=== PATIENT | female | born 1980 | race African-American/Black ===

== ENCOUNTER 2017-09-15 15:19 | Emergency (ER) | payer OTHER ==
[2017-09-15 15:26] VITALS: BP 132/88; PULSE 75; TEMP 97.9; BMI 34.6
--- NOTE | 2017-09-15 15:40 | PDOC ---
History of Present Illness - General Chief Complaint: Vaginal Sxs Stated Complaint: VAGINAL DISCHARGE Time Seen by Provider: 09/15/17 15:22 - History of Present Illness Initial Comments: 09/15/17 15:42 "Patient is a 37 F, with no significant PMHx, who presents to the ER for 3 days of vaginal discharge. Patient describes the discharge as mucus-colored with foul order. She does not report any pain but states it just feels uncomfortable down there. She states that she is sexually active. She states the last time she had intercourse was 2 weeks ago. She states that she uses protection most of the time but not always. Pt reports that she had a similar episode a year ago and received "a shot and a pill" for treatment for STD. Pt requesting same today, as well as HIV test. Patient denies vaginal bleeding, dysuria. PCP: Ron Velez " Past History - Past Medical History Allergies/Adverse Reactions: Allergies Allergy/AdvReac Type Severity Reaction Status Date / Time No Known Allergies Allergy Verified 09/15/17 15:21 Home Medications: Ambulatory Orders metroNIDAZOLE [Flagyl -] 500 mg PO BID #14 tablet 09/15/17 COPD: No - Suicide/Smoking/Psychosocial Hx Smoking History: Never smoked Hx Alcohol Use: No Drug/Substance Use Hx: No Substance Use Type: None Review of Systems - Review of Systems Comments:: 09/15/17 15:43 "GENERAL/CONSTITUTIONAL: No fever or chills. No weakness. HEAD, EYES, EARS, NOSE AND THROAT: No change in vision. No ear pain or discharge. No sore throat. CARDIOVASCULAR: No chest pain or shortness of breath. RESPIRATORY: No cough, wheezing, or hemoptysis. GASTROINTESTINAL: No nausea, vomiting, diarrhea or constipation. GENITOURINARY: No dysuria, frequency, or change in urination. GYNECOLOGICAL: + Malodorous yellow-colored discharge MUSCULOSKELETAL: No joint or muscle swelling or pain. No neck or back pain. SKIN: No rash NEUROLOGIC: No headache, vertigo, loss of consciousness, or change in strength/ sensation. ENDOCRINE: No increased thirst. No abnormal weight change. HEMATOLOGIC/LYMPHATIC: No anemia, easy bleeding, or history of blood clots. ALLERGIC/IMMUNOLOGIC: No hives or skin allergy. *Physical Exam - Vital Signs Last Vital Signs Temp Pulse Resp BP Pulse Ox 97.9 F 75 16 132/88 99 09/15/17 15:21 09/15/17 15:21 09/15/17 15:21 09/15/17 15:21 09/15/17 15:21 - Physical Exam Comments: 09/15/17 15:36 "GENERAL: Awake, alert, and fully oriented, in no acute distress. HEAD: No signs of trauma EYES: PERRLA, EOMI, sclera anicteric, conjunctiva clear ENT: Auricles normal inspection, hearing grossly normal, nares patent, oropharynx clear without exudates. Moist mucosa NECK: Nontender, no stepoffs, Normal ROM, supple, no lymphadenopathy, JVD, or masses LUNGS: Breath sounds equal, clear to auscultation bilaterally. No wheezes, and no crackles HEART: Regular rate and rhythm, normal S1 and S2, no murmurs, rubs or gallops ABDOMEN: Soft, nontender, normoactive bowel sounds. No guarding, no rebound. No masses EXTREMITIES: Normal range of motion, no edema. No clubbing or cyanosis. No cords, erythema, or tenderness NEUROLOGICAL: Cranial nerves II through XII intact. 5/5 strength and sensation in all extremities, Normal speech, normal gait, normal cerebellar function SKIN: Warm, Dry, normal turgor, no rashes or lesions noted. : + clear yellowish discharge with fishy odor, no CMT, no white discharge, no lesions on labia or in vaginal canal Medical Decision Making - Medical Decision Making 09/15/17 15:39 37 F with foul smelling vaginal discharge. Likely BV. No CMT to suggest PID. However, pt requesting tx for GC/CT as well, in addition to HIV test. - Flagyl 500mg BID - Ceftriaxone 250mg IM, azithro 1gm - HIV test 09/15/17 16:08 Pt does not wish to wait for HIV test result. Will DC at this time. Pt is well appearing, with normal vitals. Clinically stable for DC at this time. I discussed the physical exam findings, ancillary test results and final diagnoses with the patient. I answered all of the patient's questions. The patient was satisfied with the care received and felt comfortable with the discharge plan and treatment plan. The patient agrees to follow up with the primary care physician within 24-72 hours. *DC/Admit/Observation/Transfer Diagnosis at time of Disposition: Bacterial vaginosis - Discharge Dispostion Disposition: HOME Condition at time of disposition: Good - Prescriptions Prescriptions: metroNIDAZOLE [Flagyl -] 500 mg PO BID #14 tablet - Referrals Referrals: Ron Velez MD [Primary Care Provider] - - Patient Instructions Printed Discharge Instructions: DI for Bacterial Vaginosis Additional Instructions: Take the antibiotics as prescribed to treat your infection. If you experience pain, fevers, worsening discharge, or any other concerning symptoms, return to the ER immediately. We will call you with your HIV test results. If you do not hear back from us, call [phone] for your results. - Post Discharge Activity - Attestations Physician Attestion: 09/15/17 16:12 I, Dr. Ed Carbone MD, attest that this document has been prepared under my direction and personally reviewed by me in its entirety. I further attest, that it accurately reflects all work, treatment, procedures and medical decision -making performed by me.
[2017-09-15] MEDS ORDERED: AZITHROMYCIN 1 GM PACKET PO ONE (15:41)
[2017-09-15] MEDS ORDERED: AZITHROMYCIN 1 GM PACKET ONE (15:44)
== END 2017-09-15 16:38 | disposition home or self-care (01) ==
LOC: FER 15:19
DX: N76.0 Acute vaginitis (principal)
CPT/HCPCS: 36415; 87389; 96372; 99282-25

== ENCOUNTER 2018-02-17 08:28 | Emergency (ER) | payer OTHER ==
[2018-02-17 08:44] VITALS: BP 125/86; PULSE 73; TEMP 98.3; BMI 36.2
[2018-02-17] MEDS ORDERED: KETOROLAC TROMETHAMINE 30 MG/1 ML VIAL ONE (08:44)
[2018-02-17] MEDS ORDERED: KETOROLAC TROMETHAMINE 30 MG/1 ML VIAL IM ONE (08:44)
[2018-02-17] MEDS ORDERED: PENICILLIN V POTASSIUM 500 MG TABLET PO ONE (08:45)
--- NOTE | 2018-02-17 08:51 | PDOC ---
History of Present Illness - General Chief Complaint: Pain Stated Complaint: LEFT EAR AND TOOTH PAIN Time Seen by Provider: 02/17/18 08:39 History Source: Patient, Unavil. due to pt. cond. - History of Present Illness Initial Comments: 02/17/18 08:46 37-year-old female no past medical history here today complaining of left lower dental pain. Patient states pain is referred to her left ear denies any fevers or chills did feel a throbbing sensation near that tooth. States she chipped her lower molar 2 days ago has had some cold and hot sensitivity since then went to [facility] to be seen and was referred to [facility] however patient did not want to go to the hospital she presents here. States her dentist is out of the country for 3 weeks. Denies fevers or chills no other current complaints Past History - Past Medical History Allergies/Adverse Reactions: Allergies Allergy/AdvReac Type Severity Reaction Status Date / Time No Known Allergies Allergy Verified 02/17/18 08:29 Home Medications: Ambulatory Orders Ibuprofen [Motrin -] 400 mg PO PRN 02/17/18 Ibuprofen [Motrin -] 600 mg PO TID PRN #90 tablet MDD 3 02/17/18 Penicillin V Potassium [Pen Vee K -] 500 mg PO TID #21 tablet 02/17/18 COPD: No - Suicide/Smoking/Psychosocial Hx Smoking History: Never smoked Have you smoked in the past 12 months: No Information on smoking cessation initiated: No Hx Alcohol Use: No Drug/Substance Use Hx: No Substance Use Type: None Review of Systems - Review of Systems Constitutional: No: Chills, Diaphoresis HEENTM: Yes: Dental Problems. No: Eye Pain Respiratory: No: Cough, Orthopnea Cardiac (ROS): No: Chest Pain : No: Burning, Dysuria Musculoskeletal: No: Back Pain, Gout All Other Systems: Reviewed and Negative *Physical Exam - Vital Signs Last Vital Signs Temp Pulse Resp BP Pulse Ox 98.3 F 73 16 125/86 99 02/17/18 08:29 02/17/18 08:29 02/17/18 08:29 02/17/18 08:29 02/17/18 08:29 - Physical Exam Comments: 02/17/18 08:49 Awake alert notes distress. TMs are clear bilaterally. Throat pharynx is clear no urinary erythema no exudates uvula is midline. Dental exam reviews a left lower molar with an avulsion there is no palpable gum fluctuance or palpable abscess. No appreciated buccal or facial swelling. No trismus cardiac exam is regular without murmurs rubs or gallops lungs are clear bilaterally. Skin is warm and dry Medical Decision Making - Medical Decision Making 02/17/18 08:51 Patient with dental avulsion and increasing pain. We'll prescribe Motrin 600 mg we'll also give prescription for penicillin. Patient was given information for a local dental urgent care told to follow up with her dentist or dentist colleague return for any swelling fever or any other concerns *DC/Admit/Observation/Transfer Diagnosis at time of Disposition: Pain, dental - Discharge Dispostion Disposition: HOME Condition at time of disposition: Stable Decision to Admit order: No - Prescriptions Prescriptions: Ibuprofen [Motrin -] 600 mg PO TID PRN #90 tablet MDD 3 PRN Reason: Pain Penicillin V Potassium [Pen Vee K -] 500 mg PO TID #21 tablet - Referrals - Patient Instructions Printed Discharge Instructions: DI for Dental Pain Additional Instructions: He should take penicillin 500 mg 3 times daily for 1 week. For your pain he can take ibuprofen 600 mg every 8 hours as needed. Due take with food. you were given a penicillin 500mg here today and toradol intramuscular injection for your pain. you should follow-up with a dental urgent care or your primary dentist for definitive treatment. The dental urgent care is located at [address] [place] [address]. Phone number is [phone] they are open today at 9 AM. - Post Discharge Activity
== END 2018-02-17 09:06 | disposition home or self-care (01) ==
LOC: FER 08:28
PROC: 3E0233Z Introduction of Anti-inflammatory into Muscle, Percutaneous Approach (ICD-10-PCS; principal; 2018-02-17)
DX: K08.89 Other specified disorders of teeth and supporting structures (principal)
CPT/HCPCS: 99282-25

== ENCOUNTER 2018-10-12 15:54 | Emergency (ER) | payer OTHER ==
[2018-10-12 16:33] VITALS: BP 122/76; PULSE 84; TEMP 99.1; BMI 37.9
[2018-10-12] MEDS ORDERED: KETOROLAC TROMETHAMINE 15 MG/ML VIAL IM ONE (16:37)
[2018-10-12] MEDS ORDERED: DEXAMETHASONE SOD PHOSPHATE 4 MG/1 ML VIAL IM ONE (16:37)
[2018-10-12] MEDS ORDERED: KETOROLAC TROMETHAMINE 15 MG/ML VIAL ONE (16:50)
[2018-10-12] MEDS ORDERED: DEXAMETHASONE SOD PHOSPHATE 4 MG/1 ML VIAL ONE (16:50)
--- NOTE | 2018-10-12 17:20 | PDOC ---
Documentation entered by Cecelia Vilchis SCRIBE, acting as scribe for Filipe Negrete MD. Filipe Negrete MD: This documentation has been prepared by the Mame maza Brenda, SCRIBE, under my direction and personally reviewed by me in its entirety. I confirm that the documentation accurately reflects all work, treatment, procedures, and medical decision making performed by me. History of Present Illness - General Chief Complaint: Sore Throat Stated Complaint: SORE THROAT History Source: Patient Exam Limitations: No Limitations - History of Present Illness Initial Comments: 10/12/18 17:02 The patient is a 38 year old female with no significant past medical history of who presents to the emergency department with 1 day of sore throat and a subjective fever. Patient notes sore throat to be scratchy and burning, and with mild radiation to the right ear. The patients also notes nasal congestion and a cough. The patient denies recent travel. Denies chest pain, headache and dizziness. Denies nausea, vomiting, diarrhea and constipation. Allergies: NKA Social history: No tobacco use, no alcohol use. PCP: Dr. Velez Past History - Past Medical History Allergies/Adverse Reactions: Allergies Allergy/AdvReac Type Severity Reaction Status Date / Time No Known Allergies Allergy Verified 10/12/18 16:26 Home Medications: Ambulatory Orders Albuterol Sulfate Inhaler - [Ventolin Hfa Inhaler -] 1 - 2 inh PO Q4H #1 inhaler 10/12/18 Albuterol Sulfate Inhaler - [Ventolin Hfa Inhaler -] 2 inh PO Q6H PRN 10/12/18 COPD: No - Suicide/Smoking/Psychosocial Hx Smoking History: Never smoked Have you smoked in the past 12 months: No Hx Alcohol Use: No Drug/Substance Use Hx: No Substance Use Type: None Review of Systems - Review of Systems Able to Perform ROS?: Yes Comments:: 10/12/18 16:50 A complete review of 10 out of 10 review of systems is taken and is negative apart from what is previously mentioned below and in the HPI. *Physical Exam - Vital Signs Last Vital Signs Temp Pulse Resp BP Pulse Ox 99.1 F 84 16 122/76 99 10/12/18 15:55 10/12/18 15:55 10/12/18 15:55 10/12/18 15:55 10/12/18 15:55 - Physical Exam Comments: 10/12/18 16:50 Vitals: Triage vital signs reviewed General Appearance: No acute distress, well nourished, well developed Head: Atraumatic Eyes: Pupils equal reactive round, extraocular movement intact Nose: Nares patent bilaterally Throat: + Enlarged tonsils + Erythematous throat. Mucous membranes moist Neck: + Lymphadenopathy. Supple; No nuchal rigidity Chest Wall: Nontender Cardiac: Regular rate and rhythm, no murmurs, no rubs, no gallops Lungs: Clear to auscultation bilateral, good air movement bilaterally Skin: Warm and dry, no rashes or lesions,, no petechiae Neuro: AOX3; Cranial Nerves 2-12 grossly intact, Strength intact to all extremities, Sensation intact to all extremities, gait normal Psych: Normal mood, normal affect ED Treatment Course - Medications Given in the ED: ED Medications Discontinued Medications Generic Name Dose Route Start Last Admin Trade Name Freq PRN Reason Stop Dose Admin Dexamethasone Sodium Phosphate 4 mg 10/12/18 16:37 10/12/18 16:55 Decadron Injection - IM 10/12/18 16:38 4 mg ONCE ONE Administration Ketorolac Tromethamine 15 mg 10/12/18 16:37 10/12/18 16:55 Toradol Injection - IM 10/12/18 16:38 15 mg ONCE ONE Administration Medical Decision Making - Medical Decision Making 10/12/18 17:19 History examination consistent viral pharyngitis given runny nose cough Patient treated with Decadron and Toradol with some improvement in symptomatology Rapid strep negative. Supportive measures. Find his, need for follow-up and strict return instructions discussed with patient. *DC/Admit/Observation/Transfer Diagnosis at time of Disposition: Pharyngitis Qualifiers: Pharyngitis/tonsillitis etiology: unspecified etiology Qualified Code(s): J02.9 - Acute pharyngitis, unspecified - Discharge Dispostion Disposition: HOME Condition at time of disposition: Good Decision to Admit order: No - Prescriptions Prescriptions: Albuterol Sulfate Inhaler - [Ventolin Hfa Inhaler -] 1 - 2 inh PO Q4H #1 inhaler - Referrals Referrals: Ron Velez MD [Primary Care Provider] - - Patient Instructions Printed Discharge Instructions: Viral Pharyngitis Additional Instructions: Alternate [id number] Tylenol Motrin as directed on package every 3 hours as needed for pain. Follow-up with her doctor next week. Return to ED for any severe worsening symptoms or for any concerns. - Post Discharge Activity Forms/Work/School Notes: Back to Work
== END 2018-10-12 17:41 | disposition home or self-care (01) ==
LOC: FER 15:54
PROC: 3E023GC Introduction of Other Therapeutic Substance into Muscle, Percutaneous Approach (ICD-10-PCS; principal; 2018-10-12)
PROC: 3E0233Z Introduction of Anti-inflammatory into Muscle, Percutaneous Approach (ICD-10-PCS; 2018-10-12)
DX: J02.9 Acute pharyngitis, unspecified (principal)
CPT/HCPCS: 87070; 87880; 96372; 99282-25

== ENCOUNTER 2019-06-25 13:14 | Emergency (ER) | payer OTHER ==
[2019-06-25 13:23] VITALS: BMI 35.7
[2019-06-25] MEDS ORDERED: METOCLOPRAMIDE HCL INJECTION 10 MG/2 ML VIAL IVPB ONE (13:38)
[2019-06-25] MEDS ORDERED: SODIUM CHLORIDE 0.9% 1000 ML INFUS.BAG IV ONE (13:38)
[2019-06-25] MEDS ORDERED: METOCLOPRAMIDE HCL INJECTION 10 MG/2 ML VIAL ONE (13:58)
--- NOTE | 2019-06-25 15:04 | PDOC ---
History of Present Illness - General Chief Complaint: Headache Stated Complaint: HEADACHE FOR 2 DAYS TOOK EXCEDRIN MIGRAINE INTERM Time Seen by Provider: 06/25/19 13:28 - History of Present Illness Initial Comments: 06/25/19 15:00 39 years old past medical history significant for headaches approximately 1-2 a month usually resolve with Excedrin presents to the ED with 2-day history of gradual onset headache yesterday starting at the top of her head sharp intermittent gradually worsening no associated fever photophobia or neck stiffness no URI symptoms no rash Symptoms are mild to moderate persistent constant gradually worsening Past History - Past Medical History Allergies/Adverse Reactions: Allergies Allergy/AdvReac Type Severity Reaction Status Date / Time No Known Allergies Allergy Verified 10/12/18 16:26 Home Medications: Ambulatory Orders NK [No Known Home Medication] 06/25/19 Asthma: Yes COPD: No Other medical history: DENIES - Psycho Social/Smoking Cessation Hx Smoking History: Never smoked Have you smoked in the past 12 months: No Information on smoking cessation initiated: No Hx Alcohol Use: No Drug/Substance Use Hx: No Substance Use Type: None Review of Systems - Review of Systems Comments:: 06/25/19 15:00 ROS: A complete review of 10 out of 10 review of systems is taken and is negative apart from what is previously mentioned below and in the HPI. *Physical Exam - Vital Signs Last Vital Signs Temp Pulse Resp BP Pulse Ox 98 F 72 16 127/84 100 06/25/19 13:15 06/25/19 13:15 06/25/19 13:15 06/25/19 13:15 06/25/19 13:15 - Physical Exam 06/25/19 15:01 Vitals: Triage Vital signs reviewed General Appearance: No acute distress, well nourished well developed, Head: Atraumatic, Eyes: Pupils equal reactive round, extraocular movement intact Neck: Supple; no Nucal rigidity Chest Wall: Nontender Cardiac: Regular rate and rhythym, no murmurs, no rubs, no gallops, Lungs: Clear to auscultation bilateral, good air movement bilaterally, Abdomen: Soft, non distended, normal bowel sounds, non tender to palpation Extremities: Full range of motion to all extremities, no cyanosis, clubbing, or edema Skin: Warm and dry, no rashes or lesions, no rash, no petechiae Neuro: AOX3; cranial Nerves 2-12 grossly intact, strength intact to all extremities, sensation intact to all extremities, gait normal Psych: Normal mood, normal affect ED Treatment Course - RADIOLOGY Radiology Studies Ordered: Category Date Time Status HEAD CT WITHOUT CONTRAST [CT] Stat CT Scan 06/25/19 13:38 Completed - Medications Given in the ED: ED Medications Discontinued Medications Generic Name Dose Route Start Last Admin Trade Name Ruddy PRN Reason Stop Dose Admin Diphenhydramine HCl 25 mg 06/25/19 13:38 06/25/19 14:00 Benadryl Injection - IVPB 06/25/19 13:39 25 mg ONCE ONE Administration Metoclopramide HCl 10 mg 06/25/19 13:38 06/25/19 14:11 Reglan Injection - IVPB 06/25/19 13:39 10 mg ONCE ONE Administration Sodium Chloride 1,000 ml 06/25/19 13:38 06/25/19 13:56 Normal Saline - IV 06/25/19 13:39 1,000 ml ONCE ONE Administration Medical Decision Making - Medical Decision Making 06/25/19 15:01 39 years old with no significant past medical headache with headache lasting 2 days typical headache is 1 day no prior imaging Well-appearing no apparent distress will CT head migraine meds observe and reassess Reevaluation no acute pathology noted on head CT patient feels better after fluids and meds will give 1 day off from work she will follow-up with neurology she will return to ED for any severe worsening symptoms or for any concerns Findings, the need for follow-up and strict return instructions discussed with patient. Discharge - Discharge Information Problems reviewed: Yes Clinical Impression/Diagnosis: Headache Qualifiers: Headache type: unspecified Headache chronicity pattern: acute headache Intractability: not intractable Qualified Code(s): R51 - Headache Condition: Stable - Admission No - Follow up/Referral Referrals: Matt Lopez MD [Staff Physician] - - Patient Discharge Instructions Patient Printed Discharge Instructions: Tension Headache Additional Instructions: Drink plenty of fluids. Take [id number] Motrin for the next 2 days as directed on package. Rest. If headache persists follow-up with Dr. Saleem off neurology. Return to the emergency department immediately for any severe worsening symptoms or for any concerns. - Post Discharge Activity Work/Back to School Note: Back to Work
[2019-06-25 15:20] VITALS: BP 123/83; PULSE 58; TEMP 98.5
== END 2019-06-25 15:22 | disposition home or self-care (01) ==
LOC: FER 13:14
PROC: 3E033GC Introduction of Other Therapeutic Substance into Peripheral Vein, Percutaneous Approach (ICD-10-PCS; principal; 2019-06-25)
DX: R51 Headache (principal)
CPT/HCPCS: 70450-TC; 99285-25; J7030

== ENCOUNTER 2020-07-31 13:10 | Emergency (ER) | payer OTHER ==
[2020-07-31 13:26] VITALS: BP 142/100; PULSE 90; TEMP 98.9; BMI 37.9
== END 2020-07-31 14:38 | disposition home or self-care (01) ==
LOC: FER 13:10
DX: H92.01 Otalgia, right ear (principal)
CPT/HCPCS: 99282-25

== ENCOUNTER 2020-10-15 13:46 | Emergency (ER) | payer OTHER ==
[2020-10-15 14:01] VITALS: BP 132/89; PULSE 80; TEMP 98.2; BMI 28.1
== END 2020-10-15 14:50 | disposition home or self-care (01) ==
LOC: FER 13:46
DX: R50.9 Fever, unspecified (principal); R68.83 Chills (without fever); J02.9 Acute pharyngitis, unspecified
CPT/HCPCS: 99283-25

== ENCOUNTER 2020-10-19 13:15 | Emergency (ER) | payer OTHER ==
[2020-10-19] MEDS ORDERED: ALBUTEROL SO4 2.5/IPRATROPIUM 0.5 INH SOL 3 ML VIAL.NEB. NEB ONE ×2 (13:17→13:22)
[2020-10-19 13:19] VITALS: BP 118/78; PULSE 78; TEMP 97.8; BMI 31.6
[2020-10-19] MEDS ORDERED: FLUCONAZOLE 50 MG TABLET PO ONE (13:30)
[2020-10-19] MEDS ORDERED: FLUCONAZOLE 150 MG TABLET PO ONE (13:36)
== END 2020-10-19 14:00 | disposition home or self-care (01) ==
LOC: FER 13:15
PROC: 3E0F7GC Introduction of Other Therapeutic Substance into Respiratory Tract, Via Natural or Artificial Opening (ICD-10-PCS; principal; 2020-10-19)
DX: R06.02 Shortness of breath (principal); B37.9 Candidiasis, unspecified
CPT/HCPCS: 99283-25

== ENCOUNTER 2021-06-30 17:05 | Emergency (ER) | payer OTHER ==
[2021-06-30 17:19] VITALS: BP 136/83; PULSE 61; TEMP 98.3; BMI 36.2
[2021-06-30] MEDS ORDERED: ALBUTEROL SO4 2.5/IPRATROPIUM 0.5 INH SOL 3 ML VIAL.NEB. NEB ONE ×2 (17:33→17:42)
[2021-06-30] MEDS ORDERED: KETOROLAC TROMETHAMINE 30 MG/1 ML VIAL IM ONE (17:33)
[2021-06-30] MEDS ORDERED: ACETAMINOPHEN 325 MG TABLET (FP) PO ONE (17:34)
[2021-06-30] MEDS ORDERED: ACETAMINOPHEN 325 MG TABLET (FP) ONE (17:42)
[2021-06-30] MEDS ORDERED: KETOROLAC TROMETHAMINE 30 MG/1 ML VIAL ONE (17:42)
== END 2021-06-30 18:32 | disposition home or self-care (01) ==
LOC: FER 17:05
PROC: 3E023GC Introduction of Other Therapeutic Substance into Muscle, Percutaneous Approach (ICD-10-PCS; principal; 2021-06-30)
PROC: 3E0F7GC Introduction of Other Therapeutic Substance into Respiratory Tract, Via Natural or Artificial Opening (ICD-10-PCS; 2021-06-30)
DX: R51.9 Headache, unspecified (principal)
CPT/HCPCS: 84703; 94640; 96372; 99284-25

== ENCOUNTER 2021-10-11 16:58 | Emergency (ER) | payer OTHER ==
[2021-10-11 17:13] VITALS: BP 130/79; PULSE 76; TEMP 98.2; BMI 34.6
[2021-10-11] MEDS ORDERED: DIPHTH,PERTUSS(ACELL),TET 0.5 ML DISP.SYRIN IM ONE ×2 (17:26→17:31)
[2021-10-11] MEDS ORDERED: AZITHROMYCIN 500 MG TABLET PO ONE (18:32)
[2021-10-11] MEDS ORDERED: AZITHROMYCIN 250 MG TABLET ONE (18:45)
== END 2021-10-11 18:55 | disposition home or self-care (01) ==
LOC: FER 16:58
PROC: 3E0234Z Introduction of Serum, Toxoid and Vaccine into Muscle, Percutaneous Approach (ICD-10-PCS; principal; 2021-10-11)
PROC: 3E023GC Introduction of Other Therapeutic Substance into Muscle, Percutaneous Approach (ICD-10-PCS; principal; 2021-10-11)
DX: S89.92XA Unspecified injury of left lower leg, initial encounter (principal); W22.8XXA Striking against or struck by other objects, initial encounter
CPT/HCPCS: 73590-TC-LT-FY; 81003; 87086; 90471; 90715; 96372; 99284-25

== ENCOUNTER 2021-10-23 23:55 | Emergency (ER) | payer OTHER ==
[2021-10-24 00:01] VITALS: BMI 34.6
[2021-10-24 00:08] VITALS: BP 121/74; PULSE 70; TEMP 98.5
[2021-10-24] MEDS ORDERED: AZITHROMYCIN 500 MG TABLET PO ONE (01:10)
[2021-10-24] MEDS ORDERED: AZITHROMYCIN 250 MG TABLET ONE (01:18)
[2021-10-24 03:11] LABS: EPI CELLS 6 /uL (0-25.1); HYALINE CASTS 1 /uL (0-3.1); URINE APPEARANCE CLEAR; URINE BILIRUBIN 1+ (NEGATIVE); URINE COLOR ORANGE; URINE GLUCOSE (UA) NEGATIVE (NEGATIVE); URINE KETONE NEGATIVE (NEGATIVE); URINE LEUK ESTERASE 1+ (NEGATIVE); URINE NITRITE POSITIVE (NEGATIVE); URINE PROTEIN TRACE (NEGATIVE); URINE RBC 10 /uL (0-23.9); URINE WBC 15 /uL (0-25.8)
[2021-10-24 04:15] LABS: URINE BACTERIA 4.7 /uL (0-1359); URINE CRYSTALS NONE SEEN /hpf
[2021-10-24 06:05] LABS: HCG,QUALITATIVE URINE NEGATIVE
== END 2021-10-24 01:21 | disposition home or self-care (01) ==
LOC: FER 23:55
DX: N34.2 Other urethritis (principal)
CPT/HCPCS: 81003; 84703; 87086; 99283-25

== ENCOUNTER 2021-12-03 22:16 | Emergency (ER) | payer OTHER ==
[2021-12-03 22:25] VITALS: BP 124/71; PULSE 81; RESP 14; TEMP 98.8; BMI 34.6
[2021-12-03] MEDS ORDERED: ACETAMINOPHEN 500 MG TABLET (FP) PO ONE (23:06)
[2021-12-03] MEDS ORDERED: SODIUM PHOSPHATE/NA BIPHOS 133 ML ENEMA PR ONE ×2 (23:07→23:34)
[2021-12-03] MEDS ORDERED: ACETAMINOPHEN 325 MG TABLET (FP) ONE (23:14)
[2021-12-03] MEDS ORDERED: POLYETHYLENE GLYCOL (HEALTHYLAX) 3350 17 GM PACKET PO SCH (23:15)
== END 2021-12-04 00:17 | disposition home or self-care (01) ==
LOC: FER 22:16
DX: K59.00 Constipation, unspecified (principal)
CPT/HCPCS: 99283-25

== ENCOUNTER 2022-03-07 18:20 | Emergency (ER) | payer OTHER ==
[2022-03-07 18:25] VITALS: BP 121/77; PULSE 91; RESP 18; TEMP 98; BMI 34.6
[2022-03-07] MEDS ORDERED: NEOMYCIN/POLYMYXN/HC OTIC SUSPENSION 10 ML BOTTLE AD STA (19:19)
[2022-03-07] MEDS ORDERED: NEOMYCIN/POLYMYXN/HC OTIC SUSPENSION 10 ML BOTTLE ONE (19:22)
== END 2022-03-07 19:50 | disposition home or self-care (01) ==
LOC: FER 18:20
DX: H60.501 Unspecified acute noninfective otitis externa, right ear (principal)
CPT/HCPCS: 99283-25

== ENCOUNTER 2022-03-25 05:43 | Emergency (ER) | payer OTHER ==
[2022-03-25 06:08] VITALS: BP 111/71; PULSE 64; RESP 16; TEMP 98.3; BMI 34.6
== END 2022-03-25 06:30 | disposition home or self-care (01) ==
LOC: FER 05:43
DX: H60.501 Unspecified acute noninfective otitis externa, right ear (principal)
CPT/HCPCS: 99283-25

== ENCOUNTER 2022-09-08 15:39 | Emergency (ER) | payer OTHER ==
[2022-09-08 15:46] VITALS: BP 116/77; PULSE 87; RESP 16; TEMP 99.2; BMI 34.6
[2022-09-08] MEDS ORDERED: KETOROLAC TROMETHAMINE 15 MG/ML VIAL IM ONE (16:53)
[2022-09-08] MEDS ORDERED: ACETAMINOPHEN 500 MG TABLET (FP) PO ONE (16:53)
[2022-09-08] MEDS ORDERED: ACETAMINOPHEN 325 MG TABLET (FP) ONE (16:58)
[2022-09-08] MEDS ORDERED: KETOROLAC TROMETHAMINE 15 MG/ML VIAL ONE (16:59)
[2022-09-08 19:46] LABS: THROAT:GRP A STREP NOT DETECTED (NOTDETECTED)
== END 2022-09-08 19:56 | disposition home or self-care (01) ==
LOC: FER 15:39
PROC: 3E023GC Introduction of Other Therapeutic Substance into Muscle, Percutaneous Approach (ICD-10-PCS; principal; 2022-09-08)
DX: J02.9 Acute pharyngitis, unspecified (principal); M79.10 Myalgia, unspecified site; R68.83 Chills (without fever); R51.9 Headache, unspecified; Z20.822 Contact with and (suspected) exposure to COVID-19
CPT/HCPCS: 0241U-QW; 87651; 99284-25

== ENCOUNTER 2023-01-12 19:47 | Emergency (ER) | payer OTHER ==
[2023-01-12 20:29] VITALS: BP 126/90; PULSE 65; RESP 18; TEMP 98.6; BMI 34.8
[2023-01-12] MEDS ORDERED: KETOROLAC TROMETHAMINE 60 MG/2 ML VIAL IM ONE (20:42)
[2023-01-12] MEDS ORDERED: KETOROLAC TROMETHAMINE 60 MG/2 ML VIAL ONE (20:44)
[2023-01-12] MEDS ORDERED: ALBUTEROL SO4 0.083% IH SOL 2.5 MG/3 ML VIAL.NEB. NEB ONE (20:51)
== END 2023-01-12 21:44 | disposition home or self-care (01) ==
LOC: FER 19:47
PROC: 3E0F7GC Introduction of Other Therapeutic Substance into Respiratory Tract, Via Natural or Artificial Opening (ICD-10-PCS; principal; 2023-01-12)
PROC: 3E0233Z Introduction of Anti-inflammatory into Muscle, Percutaneous Approach (ICD-10-PCS; 2023-01-12)
DX: R07.89 Other chest pain (principal); R51.9 Headache, unspecified
CPT/HCPCS: 93005; 99284-25

== ENCOUNTER 2023-05-31 15:43 | Observation (INO) | payer OTHER ==
[2023-05-31] MEDS ORDERED: ACETAMINOPHEN 1000 MG/100 ML BAG IVPB ONE (16:05)
[2023-05-31] MEDS ORDERED: SODIUM CHLORIDE 0.9% 500 ML INFUS.BAG IV ONE (16:05)
[2023-05-31] MEDS ORDERED: ACETAMINOPHEN INJECTION 100 ML IVPB ONE (16:19)
[2023-05-31 16:53] LABS: HEMATOCRIT 16.1 % (32.4-45.2); MCHC 28.3 g/dl (32.0-36.0); MEAN CELL VOLUME 62.7 fl (80-96); MEAN PLT VOLUME 10.1 fl (7.5-11.1); PLATELET COUNT 302.6 10^3/uL (134-434); RBC 2.57 10^6/uL (3.60-5.2); RDW 38.9 % (11.6-15.6); WHITE BLOOD COUNT 5.6 10^3/uL (4.0-10.8)
[2023-05-31 16:56] LABS: MCH 17.7 pg (25.7-33.7)
[2023-05-31 16:57] LABS: HEMOGLOBIN 4.6 G/dL (10.7-15.3)
[2023-05-31 17:17] LABS: ALBUMIN 3.8 g/dl (3.4-5.0); BILIRUBIN,TOTAL 0.4 mg/dl (0.2-1); CREATININE 0.6 mg/dl (0.6-1.3); POTASSIUM 3.5 mmol/L (3.5-5.1); TOT PROT 6.4 g/dl (6.4-8.2)
[2023-05-31 17:48] LABS: PLATELET ESTIMATE ADEQUATE
[2023-05-31] MEDS ORDERED: ALBUTEROL SO4 0.083% IH SOL 2.5 MG/3 ML VIAL.NEB. NEB PRN (22:16)
[2023-05-31 22:27] VITALS: BMI 34.4
[2023-06-01 08:52] LABS: CALCIUM 7.8 mg/dl (8.5-10.1); CREATININE 0.6 mg/dl (0.6-1.3); POTASSIUM 4.3 mmol/L (3.5-5.1)
[2023-06-01 09:09] VITALS: RESP 18
[2023-06-01] MEDS: ACETAMINOPHEN 325 MG TABLET (FP) PO PRN (09:38)
[2023-06-01] MEDS: FERROUS SO4 325 MG TABLET (FP) PO SCH (09:38)
[2023-06-01 10:09] LABS: BASO % 0.8 % (0-2.0); EOS % 2.4 % (0-4.5); HEMATOCRIT 24.2 % (32.4-45.2); HEMOGLOBIN 7.1 GM/dL (10.7-15.3); LYMPH % 26.7 % (8-40); MCH 20.3 pg (25.7-33.7); MCHC 29.2 g/dl (32.0-36.0); MEAN CELL VOLUME 69.3 fl (80-96); MEAN PLT VOLUME 10.2 fl (7.5-11.1); MONO % 8.8 % (3.8-10.2); NEUT % 61.3 % (42.8-82.8); PLATELET COUNT 251 10^3/uL (134-434); RDW 37.7 % (11.6-15.6); WHITE BLOOD COUNT 6.3 K/mm3 (4.0-10.0)
[2023-06-01 10:54] LABS: ANISOCYTOSIS 3+; MACROCYTOSIS 0
[2023-06-01] MEDS: PANTOPRAZOLE 40 MG TABLET PO SCH (11:06)
[2023-06-01] MEDS ORDERED: IRON SUCROSE INJECTION 200 MG in SODIUM CHLORIDE 100 ML IVPB ONE (13:00)
[2023-06-02] MEDS: FERROUS SO4 325 MG TABLET (FP) PO SCH (09:31)
[2023-06-02] MEDS: PANTOPRAZOLE 40 MG TABLET PO SCH (09:31)
[2023-06-02] MEDS: ACETAMINOPHEN 325 MG TABLET (FP) PO PRN (09:33)
[2023-06-02 11:20] LABS: HEMATOCRIT 25.7 % (32.4-45.2); MCHC 31.2 g/dl (32.0-36.0); MEAN CELL VOLUME 70.7 fl (80-96); MEAN PLT VOLUME 9.5 fl (7.5-11.1); PLATELET COUNT 391.5 10^3/uL (134-434); RBC 3.64 10^6/uL (3.60-5.2); RDW 42.8 % (11.6-15.6); WHITE BLOOD COUNT 7.9 10^3/uL (4.0-10.8)
[2023-06-02 12:19] LABS: ADD RBC MORPHOLOGY YES
[2023-06-02 12:21] LABS: ANISOCYTOSIS 3+
[2023-06-02 12:22] LABS: PLATELET ESTIMATE ADEQUATE
[2023-06-02] MEDS ORDERED: CYANOCOBALAMIN (VITAMIN B-12) 1000 MCG/1 ML VIAL IM ONE (12:30)
[2023-06-02 14:30] VITALS: BP 124/73; PULSE 86; TEMP 97.8
== END 2023-06-02 14:35 | disposition home or self-care (01) ==
LOC: FER 15:43 → FM/S 17:36 → INTOOBSV 17:36
PROVIDERS: ADMIT Internal Medicine
PROC: 3E033NZ Introduction of Analgesics, Hypnotics, Sedatives into Peripheral Vein, Percutaneous Approach (ICD-10-PCS; principal; 2023-05-31)
PROC: 3E0F7GC Introduction of Other Therapeutic Substance into Respiratory Tract, Via Natural or Artificial Opening (ICD-10-PCS; 2023-05-31)
PROC: 3E023GC Introduction of Other Therapeutic Substance into Muscle, Percutaneous Approach (ICD-10-PCS; 2023-05-31)
PROC: 3E033GC Introduction of Other Therapeutic Substance into Peripheral Vein, Percutaneous Approach (ICD-10-PCS; 2023-05-31)
PROC: 3E0337Z Introduction of Electrolytic and Water Balance Substance into Peripheral Vein, Percutaneous Approach (ICD-10-PCS; 2023-05-31)
PROC: 30233N1 Transfusion of Nonautologous Red Blood Cells into Peripheral Vein, Percutaneous Approach (ICD-10-PCS; 2023-05-31)
DX: D50.9 Iron deficiency anemia, unspecified (principal); K92.1 Melena; J45.909 Unspecified asthma, uncomplicated; R07.89 Other chest pain; Z98.84 Bariatric surgery status; R42 Dizziness and giddiness
CPT/HCPCS: 0241U-QW; 36415; 36430; 71045-TC-FY; 80048; 80053; 82728; 83021; 83540; 83550; 84484; 84703; 85025; 85027; 85660; 86850; 86900; 86901; 86922; 93005; 94640; 96365; 96372; 96374; 99285-25; G0378; J0131; J1756; P9058

== ENCOUNTER 2023-10-20 12:56 | Emergency (ER) | payer OTHER ==
[2023-10-20 13:15] VITALS: BP 115/77; PULSE 62; RESP 16; TEMP 97.9; BMI 32.5
[2023-10-20] MEDS ORDERED: ACETAMINOPHEN INJECTION 100 ML IVPB ONE (14:27)
[2023-10-20] MEDS: ACETAMINOPHEN 1000 MG/100 ML BAG IVPB ONE (14:45)
[2023-10-20] MEDS: SODIUM CHLORIDE 0.9% 500 ML INFUS.BAG IV ONE (14:45)
[2023-10-20 15:11] LABS: HEMATOCRIT 41.5 % (32.4-45.2); HEMOGLOBIN 12.6 G/dL (10.7-15.3); MCHC 30.3 g/dl (32.0-36.0); MEAN CELL VOLUME 82.5 fl (80-96); MEAN PLT VOLUME 11.7 fl (7.5-11.1); PLATELET COUNT 110.4 10^3/uL (134-434); RBC 5.03 10^6/uL (3.60-5.2); RDW 24.1 % (11.6-15.6); WHITE BLOOD COUNT 3.4 10^3/uL (4.0-10.8)
[2023-10-20 15:22] LABS: ALBUMIN 3.8 g/dl (3.4-5.0); ALK PHOS 84 U/L (45-117); ANION GAP 6 mmol/L (4-13); BILIRUBIN,TOTAL 0.7 mg/dl (0.2-1); CALCIUM 8.5 mg/dl (8.5-10.1); CHLORIDE 109 mmol/L (98-107); CO2 26 mmol/L (21-32); CREATININE 0.6 mg/dl (0.6-1.3); GLUCOSE,RANDOM 81 mg/dl (74-106); PLATELET ESTIMATE DECREASED; POTASSIUM 3.8 mmol/L (3.5-5.1); SGOT/AST 29 U/L (15-37); SGPT/ALT 50 U/L (7-52); SODIUM 141 mmol/L (136-145); TOT PROT 5.9 g/dl (6.4-8.2)
[2023-10-20] MEDS ORDERED: DOXYCYCLINE HYCLATE 100 MG CAPSULE PO ONE (16:42)
[2023-10-20] MEDS: DOXYCYCLINE HYCLATE 100 MG CAPSULE PO ONE (16:50)
== END 2023-10-20 16:55 | disposition home or self-care (01) ==
LOC: FER 12:56
PROC: 3E033NZ Introduction of Analgesics, Hypnotics, Sedatives into Peripheral Vein, Percutaneous Approach (ICD-10-PCS; principal; 2023-10-20)
PROC: 3E02329 Introduction of Other Anti-infective into Muscle, Percutaneous Approach (ICD-10-PCS; 2023-10-20)
DX: G43.909 Migraine, unspecified, not intractable, without status migrainosus (principal); R10.2 Pelvic and perineal pain; R07.89 Other chest pain
CPT/HCPCS: 36415; 71046-TC-FY; 80053; 81003; 84484; 84703; 85027; 87086; 87491; 87591; 93005; 99285-25; J0131

== ENCOUNTER 2023-11-17 09:44 | Emergency (ER) | payer OTHER ==
[2023-11-17 10:00] VITALS: BP 128/83; PULSE 73; RESP 16; TEMP 97.5; BMI 32.9
[2023-11-17] MEDS ORDERED: IBUPROFEN 400 MG TABLET (FP) PO ONE (10:01)
[2023-11-17] MEDS: IBUPROFEN 400 MG TABLET (FP) PO ONE (10:03)
== END 2023-11-17 11:00 | disposition home or self-care (01) ==
LOC: FER 09:44
DX: S80.01XA Contusion of right knee, initial encounter (principal); W10.8XXA Fall (on) (from) other stairs and steps, initial encounter; Y92.018 Other place in single-family (private) house as the place of occurrence of the external cause
CPT/HCPCS: 73562-TC-RT-FY; 99283-25

== ENCOUNTER 2024-02-27 20:13 | Emergency (ER) | payer OTHER ==
[2024-02-27 20:21] VITALS: BP 131/90; PULSE 68; RESP 18; TEMP 97.3; BMI 32.9
[2024-02-27] MEDS: SODIUM CHLORIDE 1,000 ML IV ONE (21:35)
[2024-02-27 22:01] LABS: HEMATOCRIT 41.1 % (32.4-45.2); HEMOGLOBIN 12.6 G/dL (10.7-15.3); MCH 26.4 pg (25.7-33.7); MCHC 30.6 g/dl (32.0-36.0); MEAN CELL VOLUME 86.1 fl (80-96); MEAN PLT VOLUME 11.7 fl (7.5-11.1); PLATELET COUNT 114.1 10^3/uL (134-434); RBC 4.77 10^6/uL (3.60-5.2); RDW 15.6 % (11.6-15.6); WHITE BLOOD COUNT 4.2 10^3/uL (4.0-10.8)
[2024-02-27 22:06] LABS: ALBUMIN 3.9 g/dl (3.4-5.0); BILIRUBIN,TOTAL 0.7 mg/dl (0.2-1); CALCIUM 8.6 mg/dl (8.5-10.1); CREATININE 0.6 mg/dl (0.6-1.3); POTASSIUM 3.6 mmol/L (3.5-5.1); TOT PROT 6.5 g/dl (6.4-8.2)
== END 2024-02-27 23:02 | disposition home or self-care (01) ==
LOC: FER 20:13
PROC: 3E0337Z Introduction of Electrolytic and Water Balance Substance into Peripheral Vein, Percutaneous Approach (ICD-10-PCS; principal; 2024-02-27)
DX: R11.2 Nausea with vomiting, unspecified (principal); R50.9 Fever, unspecified; B34.9 Viral infection, unspecified; Z20.822 Contact with and (suspected) exposure to COVID-19
CPT/HCPCS: 0241U-QW; 36415; 80053; 85027; 99284-25

== ENCOUNTER 2024-08-25 18:10 | Emergency (ER) | payer OTHER ==
[2024-08-25 18:20] VITALS: BP 140/80; PULSE 76; RESP 18; TEMP 98.2; BMI 36.2
[2024-08-25] MEDS ORDERED: CycloBENZAprine HCL 5 MG TABLET ONE (18:22)
[2024-08-25] MEDS ORDERED: KETOROLAC TROMETHAMINE 30 MG/1 ML VIAL ONE (18:22)
[2024-08-25] MEDS: CycloBENZAprine HCL 10 MG TABLET (FP) PO ONE (18:27)
[2024-08-25] MEDS: KETOROLAC TROMETHAMINE 30 MG/1 ML VIAL IM ONE (18:27)
== END 2024-08-25 18:39 | disposition home or self-care (01) ==
LOC: FER 18:10
PROC: 3E0233Z Introduction of Anti-inflammatory into Muscle, Percutaneous Approach (ICD-10-PCS; principal; 2024-08-25)
DX: S39.012A Strain of muscle, fascia and tendon of lower back, initial encounter (principal); X50.0XXA Overexertion from strenuous movement or load, initial encounter
CPT/HCPCS: 99284-25